=== PATIENT | female | born 1945 | race Caucasian/White ===

== ENCOUNTER 2016-10-26 09:03 | Inpatient (IN) ==
--- NOTE | 2016-10-26 09:31 | Anesthesia Evaluation PreOp ---
Date of Encounter: 10/26/16 Time of Encounter: 09:29 - Past History Planned Operation: Robotic Laparoscopic Sigmoid Colectomy Cardiac History: HTN, Hyperlipidemia, Arrhythmia Pulmonary History: Denies Any Significant HX INDUSTRIAL SPECIALIST History: Denies Any Significant HX Other Medical History: Renal (CKD stage 3), GERD, Other (fibromyalgia) Anesthesia History: No Prior Anesthetic Complications, Past Anesthesia Alcohol Use: none Drug use: none Medications and Allergies ClonazePAM [Klonopin] 0.5 mg PO HS 06/17/15 [History] Esomeprazole Magnesium [Nexium] 40 mg PO QAM 06/17/15 [History] Gabapentin [Neurontin] 300 mg PO TID PRN 06/17/15 [History] Loratadine [Claritin] 10 mg PO DAILY PRN 06/17/15 [History] Metoprolol [Lopressor] 12.5 mg PO BID 06/17/15 [History] Ropinirole HCl [Requip] 2 mg PO HS 06/17/15 [History] Simvastatin [Zocor] 40 mg PO HS 06/17/15 [History] Fenofibrate [Tricor] 162 mg PO DAILY #30 tablet 06/19/15 [Rx] Ferrous Sulfate 325 mg PO DAILY #30 tablet 06/19/15 [Rx] [place]-3/Dha/Epa/Fish Oil [Fish Oil 1,200 mg Softgel] 2 each PO DAILY #60 capsule. 06/19/15 [Rx] TraMADol [Ultram] 50 mg PO QID PRN #12 tablet 12/31/15 [Rx] Cholecalciferol (D-3) [Vitamin D] 2,000 unit PO DAILY 07/05/16 [History] Ferrous Gluconate 324 mg PO DAILY 07/05/16 [History] Furosemide [Lasix] 60 mg PO DAILY 07/05/16 [History] Hydrocodone/Acetaminophen [[place] 5-325 Tablet] 1 tab PO Q4H PRN 07/05/16 [ History] Polyethylene Glycol 3350 [MiraLAX] 17 gm PO DAILY 07/05/16 [History] Allergies cephalexin [From Keflex] Allergy (Verified 06/17/15 19:36) Hives sucralfate [From Carafate] Allergy (Verified 06/17/15 19:36) Hives - Meds/Allergy Pre-op Review Medications Reviewed: Yes Allergies Reviewed: Yes Beta Blockers on Current Med List: Yes If Beta Blockers taken, Date/Time (Last Dose taken): 10/26/2016 at 0600 Anesthesia Results - Labs Laboratory Tests 06/18/15 10/08/16 10/08/16 01:14 09:25 09:25 WBC 7.0 Hgb 13.7 Hct 41.3 Plt Count 225 PT 11.1 INR 1.04 PTT 27.7 Sodium 139 Potassium 3.9 BUN 22 H Creatinine 1.03 - Imaging EKG: report reviewed (10/17/2016 SR) Additional studies: 06/18/2015 Echo LVEF 60-65% mild LV diastolic dysfunction mild MR and TR normal LV structure and function 01/26/2014 Stress Impression: Pharmacologic stress ECG is negative for ischemia at level of heart rate achieved. No arrhythmias were noted during stress. Patient had no chest pain during stress. Normal hemodynamic response to pharmacologic stress. Gated EF > 70%. Normal wall motion. The left ventricle does not appear dilated. No evidence of transient ischemic dilatation. Perfusion imaging was negative for ischemia or infarct. 12/24/2013 Echo Impressions: LVEF 65%. Normal left ventricular size and systolic function. There is evidence of mild (Grade I) diastolic dysfunction of the left ventricle. Normal right ventricular size and function. No significant valvular dysfunction. RVSP of 26 mmHg No pulmonary hypertension. Clinical correlation is suggested Anesthesia Exam O2 Sat Height 1.65 m Height 1.65 m Weight 68.946 kg Weight 68.946 kg O2 Sat by Pulse Oximetry 97 Vital Signs Temp Pulse Resp BP Pulse Ox 98.2 F 62 18 135/73 97 10/26/16 09:25 10/26/16 09:25 10/26/16 09:25 10/26/16 09:25 10/26/16 09:25 Height: 5'5'' Weight: 152 lbs NPO (# of Hours): 8 Pain Scale: 0 Pain Scale Used: Numeric (1 - 10) - HEENT Pupil (Motor): EOMI Mallampati: II Teeth: Edentulous Denture Type: Upper: Complete, Lower: Complete Oral Opening: Greater than 3 - INDUSTRIAL SPECIALIST LOC: Oriented INDUSTRIAL SPECIALIST Motor: Normal LUE, Normal RLE, Normal LLE, Normal Face, Deficit RUE INDUSTRIAL SPECIALIST Sensory: Normal: LUE, RLE, LLE, Face, Deficit: RUE - Cardiac Rhythm: Regular Murmur: None - Pulmonary Breath Sounds: bilateral Clear Respiratory Effort: Symmetrical Anesthesia Assess/Plan ASA Score: 2 Modified [place] Scale for Level of Consciousness: Cooperative, oriented, and tranquil Anesthetic Plan: General Monitoring Plan: Standard Monitors Recovery Plan: PACU
[2016-10-26] MEDS ORDERED: Lidocaine -MPF 1% 2 ML VIAL ID ONE (09:43)
[2016-10-26] MEDS ORDERED: Ringers Solution, Lactated 1,000 ML IVC SCH (09:45)
[2016-10-26] MEDS ORDERED: MetroNIDAZOLE 500 MG/100 ML 500 MG/100 ML BAG IVPB ONE (09:45)
--- NOTE | 2016-10-26 10:34 | History & Physical Report ---
Date of Encounter: 10/26/16 Time of Encounter: 10:34 24 Hour HP Update - Instructions Instructions: If the History and Physical is less than 30 days old and was completed prior to A.M. admission and or procedure and has NOT been updated on calendar day of procedure please complete this update prior to performing procedure. - Update Patient reports changes in Medical Condition: No Changes in examination, assessment, or condition: No Changes in Medication: No Preop tests/diagnostics Reviewed: Yes Surgery Remains Indicated: Yes Consent for Planned Operative Procedure(s) Verified: Yes - Pre-Operative Checklist Preoperative Checklist Indicated: Yes Prophylactic Antibiotic Ordered: Yes Home Medications Include Beta Liliana: Yes Beta Liliana Taken Today (Day of Surgery): Yes
[2016-10-26] MEDS ORDERED: *HR* FentaNYL (PF) 100 MCG/2 ML VIAL ONE ×2 (10:37→13:11)
[2016-10-26] MEDS ORDERED: Ondansetron 4 MG/2 ML VIAL ONE (10:37)
[2016-10-26] MEDS ORDERED: *HR* Rocuronium Bromide 50 MG/5 ML VIAL ONE (10:37)
[2016-10-26] MEDS ORDERED: *HR* Midazolam HCl 2 MG/2 ML VIAL ONE ×2 (10:37)
[2016-10-26] MEDS ORDERED: Lidocaine -MPF 2% 2 ML VIAL ONE (10:37)
[2016-10-26] MEDS ORDERED: *HR* Propofol 200 MG/20 ML VIAL IVP ONE (10:37)
[2016-10-26] MEDS ORDERED: Albuterol 2.5 MG/3 ML NEBULIZER IH PRN (11:13)
[2016-10-26] MEDS ORDERED: Ondansetron 4 MG/2 ML VIAL IVP PRN (11:13)
[2016-10-26] MEDS ORDERED: *HR* Labetalol 100 MG/20 ML MDV IVP PRN (11:13)
[2016-10-26] MEDS ORDERED: *HR* HYDROmorphone 2 MG/ML SYRINGE ONE (12:19)
[2016-10-26] MEDS ORDERED: Neostigmine Methylsulfate 3 MG/3 ML SYRINGE ONE (12:53)
--- NOTE | 2016-10-26 13:14 | Operative Note ---
Date of procedure: 10/26/16 Pre-op diagnosis: Colonic inertia Post-op diagnosis: same Procedure: Robotic sigmoid resection with 33 mm EEA stapling Anesthesia: RENETTA Surgeon: Nba Alberts Estimated blood loss (cc): 5 Specimen: Sigmoid colon Condition: stable Disposition: floor Procedure in Detail: After informed consent, patient taken operating room placed supine position. After adequate sedation anesthesia patient was placed in a lithotomy position. After proper timeout a 12 mm cannula site was placed right superior to the umbilicus. Pneumoperitoneum was greater. A 13 mm cannula was placed in right lower quadrant. 5 mm camera was placed in the right upper quadrant. An 8 mm cannula was placed in subxiphoid region followed by another 8 mm in the left lower quadrant. Patient was placed in a headdown position. The robot was docked over the patient's left hip. Small bowel swept out of the pelvis. Rectosigmoid colon was then grasped and retracted cephalad. The peritoneum was then scored level of the sacral promontory. The left ureter was identified and kept on harm's way. The inferior mesenteric artery was then taken with a vessel sealer. The lateral rectosigmoid stalks were taken down the vessel sealer. The dissection was carried out down to approximate 4 cm above the pelvic floor. Rectosigmoid colon was dissected free from the retro-pubic tubercle region. Once it was freed a 45 mm robotic Endo staplers fired across the rectum. Once it was retracted and area was demarcated on the sigmoid colon for transection. Indocyanine green was infused and we had excellent perfusion. A counterincision was made in the suprapubic region. Dissection carried down the anterior rectus sheath. The rectus muscles were then divided in the midline with Stacey clamp. Once they were split the rectosigmoid colon was delivered. Twan bowel clamps are used to place across the colon proximal and distal and transected. Allis clamps are placed on the bowel and then a pursestring suture device placed on the colon. 3-0 Prolene suture was passed. A pursestring sutures and created and a 33 mm EEA anvil was placed. Suture was tied and secured. Colon was then placed back in the pelvis. The stapler was passed through the anal canal and to the rectal stump and then the spear was placed through the staple line. The anvil was then connected secured and fired. There were 2 excellent donuts. A leak test revealed no leak. At that point the procedure was terminated. All incisions are closed with 0 Vicryl suture and 4-0 Vicryl suture. Marcaine was inserted in the Pfannenstiel incision. She tolerated the procedure well.
[2016-10-26] MEDS: *HR* HYDROmorphone (PF) 1 MG/ML SYRINGE IVP PRN ×2 (13:18→13:23)
[2016-10-26] MEDS ORDERED: *HR* HYDROmorphone 20 MG/20 ML PCA IV PRN (13:18)
--- NOTE | 2016-10-26 14:03 | Anesthesia Evaluation Post Op ---
Date of Encounter: 10/26/16 Time of Encounter: 14:01 - Vital Signs Vital Signs: O2 Sat Height 1.65 m Height 1.65 m Weight 68.946 kg Weight 68.946 kg O2 Sat by Pulse Oximetry 95 O2 Sat by Pulse Oximetry 99 O2 Sat by Pulse Oximetry 99 O2 Sat by Pulse Oximetry 98 O2 Sat by Pulse Oximetry 94 O2 Sat by Pulse Oximetry 97 Vital Signs Temp Pulse Resp BP Pulse Ox 98.2 F 62 18 135/73 97 10/26/16 09:25 10/26/16 09:25 10/26/16 09:25 10/26/16 09:25 10/26/16 09:25 - Lungs Lungs: Clear Ascult./Percussion - Airway Airway: Non-obstructed - Cardiovascular Regular Rate - Mental Status Mental Status: Alert & Oriented, Answers Appropriately - Pain Pain Scale: 6 (treatment with dilaudid) - Nausea Vomiting Nausea Vomiting: Not Present - Hydration Hydration: Ice chips, Has not voided - Discharge PostOp Status: Transfer Patient to floor
[2016-10-26] MEDS ORDERED: Naloxone 0.4 MG/ML INJ IVP PRN (14:30)
[2016-10-26] MEDS ORDERED: *HR* HYDROmorphone 20 MG/20 ML PCA IVC PRN (15:20)
[2016-10-26] MEDS: D5% in 0.45% NACL 1,000 ML IVC SCH (15:42)
[2016-10-26] MEDS ORDERED: *HR* Heparin 5,000 UNIT/ML VIAL SQ SCH (18:00)
[2016-10-26] MEDS: Gabapentin 300 MG CAPSULE PO SCH ×2 (18:03→21:24)
[2016-10-26] MEDS: rOPINIRole 1 MG TABLET PO SCH (18:03)
[2016-10-26] MEDS: *HR* Heparin 5,000 UNIT/ML VIAL SQ SCH (18:07)
[2016-10-26] MEDS ORDERED: *HR* Promethazine 25 MG/ML VIAL IVP PRN (18:15)
[2016-10-27] MEDS: D5% in 0.45% NACL 1,000 ML IVC SCH ×2 (02:43→13:06)
[2016-10-27 02:52] LABS: Basophils % 0.1 %; Hematocrit 29.4 % (35.3-44.9); Hemoglobin 9.6 g/dL (11.5-15.4); Immature Granulocytes % 0.2 % (0-4); Lymphocytes # 1.6 K/mcL (0.6-4.6); Lymphocytes % 17.6 %; Mean Corpuscular HGB Conc 32.7 g/dL (31.6-35.5); Mean Corpuscular Hemoglobin 30.2 pg (28.0-33.3); Mean Corpuscular Volume 92.5 fL (83.0-100.0); Mean Platelet Volume 10.7 fL (9.4-12.4); Monocytes # 0.8 K/mcL (0.0-1.3); Neutrophils # 6.8 K/mcL (1.6-8.9); Platelet Count 156 K/mcL (140-400); Red Blood Count 3.18 M/mcL (3.82-4.97); Red Cell Distribution Width 16.3 % (11.5-14.5); Segmented Neutrophils % 73.1 %
[2016-10-27 04:17] LABS: BUN/Creatinine Ratio 19 (6-26); Blood Urea Nitrogen 17 mg/dL (7-20); Carbon Dioxide 23 mEq/L (19-29); Chloride 108 mEq/L (98-109); Glucose 116 mg/dL (70-99); Osmolality,Calculated 291 (280-300); Potassium 3.5 mEq/L (3.5-4.5); Sodium 139 mEq/L (136-145); eGFR For African Americans > 60 (> 60); eGFR For Non-African Americans > 60 (> 60)
[2016-10-27 04:18] LABS: Calcium 9.5 mg/dL (8.6-10.8)
[2016-10-27] MEDS: *HR* Heparin 5,000 UNIT/ML VIAL SQ SCH ×2 (06:06→18:13)
[2016-10-27] MEDS: Gabapentin 300 MG CAPSULE PO SCH ×4 (09:07→20:40)
[2016-10-27] MEDS: Furosemide 40 MG TABLET PO SCH (09:08)
[2016-10-27] MEDS: Cholecalciferol (D-3) 1,000 UNIT TABLET PO SCH (09:08)
[2016-10-27] MEDS: FENOFIBRATE MICRONIZED 67 MG PO SCH (09:09)
--- NOTE | 2016-10-27 10:59 | General Surgery Progress Note ---
Date of Encounter: 10/27/16 Time of Encounter: 10:57 - Assessment and Plan (1) Colonic inertia Current Visit: Yes Status: Acute Plan for ambulation today. Continue liguids. will add toradol. Subjective Patient reports: no flatus, nausea Objective Vital Signs - Last 8 Hours Temp Pulse Resp BP Pulse Ox 10/27/16 07:00 98.1 F 66 16 107/65 93 10/27/16 04:23 97.5 F L 68 18 107/64 93 Intake and Output 10/26/16 10/27/16 10/27/16 23:59 07:59 15:59 Intake Total 0 / 0 1240 / 1240 711 / 711 Output Total 200 / 200 400 / 400 Balance 0 / 0 1040 / 1040 311 / 311 Intake: IV Fluids 1000 / 1000 591 / 591 D5% And 0.45% Nacl 1000 1000 / 1000 591 / 591 Ml Bag 1,000 ML @ 90 mls/ hr IVC .Q11H7M MARLO Rx#: [id number] Oral 0 / 0 240 / 240 120 / 120 Output: Urine 200 / 200 400 / 400 Other: Meal Dinner Breakfast Percent of Meal Consumed 0% Weight 70.307 kg Blood Glucose* 129 Patient Weight 10/27/16 23:59 Weight 70.307 kg - General physical appearance well nourished, no distress - Eyes normal ocular movement - Abdomen Abdomen: Present: bowel sounds present, soft, tender - Incision Incision: Present: clean and dry - Labs 10/27/16 02:28 10/27/16 03:29 Diabetes panel 10/27/16 10/27/16 Range/Units 02:28 03:29 Sodium TNP 139 Potassium TNP 3.5 Chloride TNP 108 Carbon Dioxide TNP 23 BUN TNP 17 Creatinine TNP 0.88 Glucose TNP 116 H Calcium TNP 9.5 Calcium panel 10/27/16 10/27/16 Range/Units 02:28 03:29 Calcium TNP 9.5 Pituitary panel 10/27/16 10/27/16 Range/Units 02:28 03:29 Sodium TNP 139 Potassium TNP 3.5 Chloride TNP 108 Carbon Dioxide TNP 23 BUN TNP 17 Creatinine TNP 0.88 Glucose TNP 116 H Calcium TNP 9.5 Adrenal panel 04/15/17 04/15/17 Range/Units 02:28 03:29 Sodium TNP 139 Potassium TNP 3.5 Chloride TNP 108 Carbon Dioxide TNP 23 BUN TNP 17 Creatinine TNP 0.88 Glucose TNP 116 H Calcium TNP 9.5 - VTE Documentation of Mechanical Device: Intermittent pneumatic compression device Consult Discharge Plan - Plan Referrals: Bobby Brothers MD [Primary Care Provider] -
[2016-10-27] MEDS: Ketorolac 15 MG/ML VIAL IVP SCH ×2 (11:36→18:13)
[2016-10-27] MEDS: rOPINIRole 1 MG TABLET PO SCH (16:36)
[2016-10-28] MEDS: D5% in 0.45% NACL 1,000 ML IVC SCH ×2 (00:32→11:56)
[2016-10-28] MEDS: Ketorolac 15 MG/ML VIAL IVP SCH ×5 (00:33→23:26)
[2016-10-28] MEDS: *HR* Heparin 5,000 UNIT/ML VIAL SQ SCH ×2 (06:39→17:45)
[2016-10-28] MEDS: Furosemide 40 MG TABLET PO SCH (08:48)
[2016-10-28] MEDS: Gabapentin 300 MG CAPSULE PO SCH ×4 (08:48→21:21)
[2016-10-28] MEDS: Cholecalciferol (D-3) 1,000 UNIT TABLET PO SCH (08:48)
[2016-10-28] MEDS: FENOFIBRATE MICRONIZED 67 MG PO SCH (08:49)
--- NOTE | 2016-10-28 13:00 | General Surgery Progress Note ---
Date of Encounter: 10/28/16 Time of Encounter: 12:58 - Assessment and Plan (1) Colonic inertia Current Visit: Yes Status: Acute Plan for ambulation today. Continue liguids. will add toradol. I have encouraged her to continue to get out of bed and ambulate. Subjective Patient reports: other (The patient does not give any sense of whether she is progressing or how she feels. She has been tearful both days and have seen her. She cannot really give any idea why she feels this way.) Objective Vital Signs - Last 8 Hours Temp Pulse Resp BP Pulse Ox 10/28/16 11:45 98.1 F 62 18 146/78 100 10/28/16 07:00 99.0 F 74 16 117/66 94 Intake and Output 10/27/16 10/28/16 10/28/16 23:59 07:59 15:59 Intake Total 1340 / 1340 1240 / 1240 Output Total 500 / 500 700 / 700 Balance 840 / 840 540 / 540 Intake: IV Fluids 1000 / 1000 1000 / 1000 D5% And 0.45% Nacl 1000 1000 / 1000 1000 / 1000 Ml Bag 1,000 ML @ 90 mls/ hr IVC .Q11H7M MARLO Rx#: [id number] Oral 340 / 340 240 / 240 Output: Urine 500 / 500 700 / 700 Other: Meal Breakfast Weight 71.271 kg Patient Weight 10/28/16 23:59 Weight 71.271 kg - General physical appearance well nourished - Eyes PERRL - Neck Neck exam: trachea midline - Respiratory normal expansion - Cardiovascular Cardiovascular exam: Present: NR - Abdomen Abdomen: Present: bowel sounds present, soft, distended - Neurologic CN 2-12 grossly intact, normal sensation - Labs 10/27/16 02:28 10/27/16 03:29 - VTE Documentation of Mechanical Device: Intermittent pneumatic compression device Consult Discharge Plan - Plan Referrals: Bobby Brothers MD [Primary Care Provider] -
[2016-10-28] MEDS: *HR* OxyCODONE/APAP 5/325 TABLET PO PRN ×2 (13:36→19:48)
[2016-10-28] MEDS ORDERED: traMADol 50 MG TABLET PO PRN (14:42)
[2016-10-28] MEDS: rOPINIRole 1 MG TABLET PO SCH (17:44)
[2016-10-29] MEDS: *HR* Heparin 5,000 UNIT/ML VIAL SQ SCH (06:41)
[2016-10-29] MEDS: Ketorolac 15 MG/ML VIAL IVP SCH ×2 (06:41→12:01)
[2016-10-29] MEDS: Cholecalciferol (D-3) 1,000 UNIT TABLET PO SCH (10:03)
[2016-10-29] MEDS: Furosemide 40 MG TABLET PO SCH (10:03)
[2016-10-29] MEDS: Gabapentin 300 MG CAPSULE PO SCH (10:03)
[2016-10-29] MEDS: FENOFIBRATE MICRONIZED 67 MG PO SCH (10:19)
[2016-10-29 10:56] VITALS: BP 153/71
--- NOTE | 2016-10-29 14:05 | Discharge Summary ---
Date of Encounter: 10/29/16 Time of Encounter: 14:00 - Discharge Diagnosis (1) Colonic inertia Priority: Primary Status: Resolved - Discharge Medications Prescriptions: OxyCODONE/APAP 5/325 [Percocet 5/325 MG] 1 each PO Q6HR PRN #30 tablet PRN Reason: Pain Docusate [Colace] 100 mg PO BID #30 capsule Home Medications: Gabapentin [Neurontin] 300 mg PO QID 06/17/15 [History] Metoprolol [Lopressor] 12.5 mg PO BID 06/17/15 [History] Cholecalciferol (D-3) [Vitamin D] 2,000 unit PO DAILY 07/05/16 [History] Fenofibrate,Micronized [Lofibra] 67 mg PO DAILY 10/26/16 [History] Furosemide [Lasix] 40 mg PO DAILY 10/26/16 [History] Omeprazole [PriLOSEC] 40 mg PO DAILY 10/26/16 [History] Ropinirole HCl [Requip] 4 mg PO HS 10/26/16 [History] Docusate [Colace] 100 mg PO BID #30 capsule 10/29/16 [Rx] OxyCODONE/APAP 5/325 [Percocet 5/325 MG] 1 each PO Q6HR PRN #30 tablet 10/29/16 [Rx] Allergies/Adverse Reactions: Allergies cephalexin [From Keflex] Adverse Reaction (Verified 10/26/16 09:51) Gastrointestinal Upset pantoprazole [From Protonix] Adverse Reaction (Verified 10/26/16 09:51) Gastrointestinal Upset sucralfate [From Carafate] Adverse Reaction (Verified 10/26/16 09:51) Gastrointestinal Upset General Surgery Exam Initial Vital Signs Temp Pulse Resp BP Pulse Ox 98.2 F 62 18 135/73 97 10/26/16 09:25 10/26/16 09:25 10/26/16 09:25 10/26/16 09:25 10/26/16 09:25 - General physical appearance well developed, well nourished, no distress - Eyes normal ocular movement - ENT normal mucosa, atraumatic, normocephalic - Neck trachea midline - Respiratory normal respiratory effort, clear to auscultation - Cardiovascular Cardiovascular exam: Present: RRR - Abdomen Abdomen general surgery: Present: bowel sounds present, soft, tender (expected post-operative tenderness) - Incision Incision: Present: clean and dry, intact - Integumentary Integumentary general surgery: Present: warm and dry - Neurologic Present: CN 2-12 grossly intact - Psychiatric Psychiatric general surgery: Present: appropriate, oriented to person, oriented to place, oriented to time, speech is normal, memory intact Date of admission: 10/26/16 14:28 Primary care physician: Boaz Ogden Consults: 10/26/16 18:40 Consult to Pastoral Services [CONS] Routine Comment: Discharging clinician: Nba Alberts (Cecily Berry) Anticipated date of discharge: 10/29/16 - Patient Status Disposition: Home, Self-Care Condition: Good Functional capacity at discharge: independent ambulation Overall status at discharge: patient is progressing back to baseline - Discharge Instructions Follow Up With: Bobby Brothers MD [Primary Care Provider] - Magdalena Berry CNP [Advanced Practice Nurse] - 11/08/16 10:00 am (surgery follow-up) Additional Instructions: Surgical instructions: #1 May shower, no tub bath X 2 weeks #2 Wash incisions with soap and water and pat dry daily #3 No lifting/pushing/pulling greater than 15 lb. for a total of 4 weeks from the date of surgery #4 No driving until off narcotics for 24 hours and able to safely react in the car #5 May climb stairs - Diet and Activity Activity: other (See additional instructions above) Diet: advance to your usual diet - Hospital Course Hospital course: Ms. Warner is a 71 year old female with a history of colonic inertia. She is POD # 3 from a robotic sigmoid colon resection. She is tolerating full liquids without nausea/vomiting. Her vital signs are stable and she is afebrile. Her pain is controlled. She is voiding and ambulating without difficulty. She has had 2 bowel movements this morning. We will begin discharge planning to home and plan for outpatient follow-up in the next 10-14 days. - Time Spent with Patient Total time spent providing and/or coordinating discharge services: Less than 30 minutes - Attending Attestation I examined this patient and my medical decision-making was reviewed with the [employer]LOOR INSTALLER/PA/Advanced Practice Nurse/Resident Physician. I agree with the documented findings, disposition and treatment plan as described except to the extent set forth below.
== END 2016-10-29 14:57 | disposition home or self-care (01) | DRG 331 ==
LOC: SAMDAY 09:03 → 3ANU 14:28
PROVIDERS: ADMIT Surgery; ATTEND Surgery

== ENCOUNTER 2020-09-03 15:43 | Observation (INO) ==
[2020-09-03] MEDS ORDERED: Isovue-370 500 ML BOTTLE IVP ONE ×2 (16:16→17:15)
[2020-09-03 16:37] LABS: Basophils # 0.1 K/mcL (0.0-0.2); Basophils % 0.9 %; Eosinophils # 0.1 K/mcL (0.0-0.6); Eosinophils % 1.1 %; Hematocrit 45.4 % (35.3-44.9); Hemoglobin 15.4 g/dL (11.5-15.4); Immature Granulocytes % 0.2 % (0-4); Lymphocytes # 3.3 K/mcL (0.6-4.6); Lymphocytes % 40.7 %; Mean Corpuscular HGB Conc 33.9 g/dL (31.6-35.5); Mean Corpuscular Hemoglobin 30.4 pg (28.0-33.3); Mean Corpuscular Volume 89.7 fL (83.0-100.0); Mean Platelet Volume 10.4 fL (9.4-12.4); Monocytes # 0.7 K/mcL (0.0-1.3); Monocytes % 8.6 %; Platelet Count 192 K/mcL (140-400); Red Blood Count 5.06 M/mcL (3.82-4.97); Red Cell Distribution Width 13.1 % (11.5-14.5); Segmented Neutrophils % 48.5 %; White Blood Count 8.1 K/mcL (4.3-11.1)
[2020-09-03 17:00] LABS: Alanine Aminotransferase 56 Units/L (7-52); Albumin 5.1 g/dL (3.5-5.7); Albumin/Globulin Ratio 1.3 (1.1-2.2); Alkaline Phosphatase 79 Units/L (34-104); Aspartate Amino Transferase 45 Units/L (13-39); BUN/Creatinine Ratio 19 (6-26); Bilirubin,Direct 0.1 mg/dL (0.0-0.2); Bilirubin,Total 1.1 mg/dL (0.3-1.0); Blood Urea Nitrogen 21 mg/dL (8-23); Calcium 11.2 mg/dL (8.6-10.3); Carbon Dioxide 25 mEq/L (23-29); Chloride 93 mEq/L (98-107); Globulin 3.8 g/dL (2.4-3.5); Glucose 104 mg/dL (70-105); Osmolality,Calculated 285 (280-300); Potassium 3.1 mEq/L (3.5-5.1); Sodium 136 mEq/L (136-145); Total Protein 8.9 g/dL (6.4-8.9); Troponin I < 0.03 ng/mL (< 0.04); eGFR For African Americans 58 (> 60); eGFR For Non-African Americans 48 (> 60)
[2020-09-03] MEDS ORDERED: 0.9 % Sodium Chloride 1,000 ML IVC ONE ×2 (17:01→18:28)
[2020-09-03] MEDS ORDERED: Aspirin 81 MG TAB.CHEW PO STA (18:28)
[2020-09-03] MEDS: rOPINIRole 1 MG TABLET PO SCH (21:56)
[2020-09-03] MEDS ORDERED: Perflutren Lipid Microsphere 1.3 ML in 0.9 % Sodium Chloride 8.7 ML IVP PRN (23:14)
[2020-09-04] MEDS ORDERED: Naloxone 0.4 MG/ML INJ IVP PRN (00:28)
[2020-09-04 02:05] LABS: Basophils % 0.6 %; Eosinophils # 0.1 K/mcL (0.0-0.6); Eosinophils % 1.3 %; Hematocrit 39.7 % (35.3-44.9); Immature Granulocytes % 0.3 % (0-4); Lymphocytes # 3.5 K/mcL (0.6-4.6); Lymphocytes % 49.2 %; Mean Corpuscular HGB Conc 34.3 g/dL (31.6-35.5); Mean Corpuscular Hemoglobin 31.5 pg (28.0-33.3); Mean Corpuscular Volume 91.9 fL (83.0-100.0); Mean Platelet Volume 10.9 fL (9.4-12.4); Monocytes # 0.6 K/mcL (0.0-1.3); Monocytes % 8.5 %; Neutrophils # 2.9 K/mcL (1.6-8.9); Platelet Count 179 K/mcL (140-400); Red Blood Count 4.32 M/mcL (3.82-4.97); Red Cell Distribution Width 13.2 % (11.5-14.5); Segmented Neutrophils % 40.1 %; White Blood Count 7.2 K/mcL (4.3-11.1)
[2020-09-04 02:08] LABS: Hemoglobin 13.6 g/dL (11.5-15.4)
[2020-09-04 02:23] LABS: BUN/Creatinine Ratio 21 (6-26); Blood Urea Nitrogen 20 mg/dL (8-23); Calcium 9.4 mg/dL (8.6-10.3); Carbon Dioxide 24 mEq/L (23-29); Chloride 102 mEq/L (98-107); Glucose 126 mg/dL (70-105); Osmolality,Calculated 288 (280-300); Potassium 3.1 mEq/L (3.5-5.1); Sodium 137 mEq/L (136-145); eGFR For African Americans > 60 (> 60); eGFR For Non-African Americans 56 (> 60)
[2020-09-04] MEDS: *HR* Heparin 5,000 UNIT/ML VIAL SQ SCH ×2 (05:45→17:36)
[2020-09-04] MEDS ORDERED: *HR* Enoxaparin 40 MG/0.4 ML SYRINGE SQ SCH (06:00)
[2020-09-04] MEDS: rOPINIRole 1 MG TABLET PO SCH ×3 (09:38→21:32)
[2020-09-04] MEDS: Gabapentin 300 MG CAPSULE PO SCH ×2 (09:38→19:39)
[2020-09-04] MEDS: Hydrocortisone Rectal 2.5% CRM 28 GM TUBE RC SCH (09:39)
[2020-09-04] MEDS ORDERED: Gabapentin 300 MG CAPSULE PO PRN (13:55)
[2020-09-04] MEDS ORDERED: Furosemide 20 MG TABLET PO SCH (15:00)
[2020-09-04] MEDS ORDERED: FUROSEMIDE 80 MG PO SCH (21:00)
[2020-09-04] MEDS: Nystatin POWDER 30 GM BOTTLE TP SCH (21:32)
[2020-09-05] MEDS: *HR* Heparin 5,000 UNIT/ML VIAL SQ SCH (05:24)
[2020-09-05 05:43] LABS: Hematocrit 45.5 % (35.3-44.9); Mean Corpuscular Hemoglobin 30.5 pg (28.0-33.3); Mean Corpuscular Volume 92.5 fL (83.0-100.0); Mean Platelet Volume 10.9 fL (9.4-12.4); Platelet Count 184 K/mcL (140-400); Red Blood Count 4.92 M/mcL (3.82-4.97); Red Cell Distribution Width 13.2 % (11.5-14.5); White Blood Count 7.5 K/mcL (4.3-11.1)
[2020-09-05] MEDS ORDERED: Levothyroxine 25 MCG TABLET PO SCH (06:00)
[2020-09-05] MEDS ORDERED: Regadenoson 0.4 MG/5 ML SYRINGE IVP ONE (06:34)
[2020-09-05 06:35] LABS: Alanine Aminotransferase 50 Units/L (7-52); Albumin 4.7 g/dL (3.5-5.7); Albumin/Globulin Ratio 1.3 (1.1-2.2); Alkaline Phosphatase 72 Units/L (34-104); Aspartate Amino Transferase 41 Units/L (13-39); BUN/Creatinine Ratio 23 (6-26); Bilirubin,Total 1.1 mg/dL (0.3-1.0); Blood Urea Nitrogen 20 mg/dL (8-23); Calcium 10.5 mg/dL (8.6-10.3); Carbon Dioxide 25 mEq/L (23-29); Chloride 99 mEq/L (98-107); Globulin 3.5 g/dL (2.4-3.5); Glucose 121 mg/dL (70-105); Osmolality,Calculated 284 (280-300); Potassium 3.7 mEq/L (3.5-5.1); Sodium 135 mEq/L (136-145); Total Protein 8.2 g/dL (6.4-8.9); eGFR For African Americans > 60 (> 60); eGFR For Non-African Americans > 60 (> 60)
[2020-09-05] MEDS ORDERED: Cyanocobalamin (B-12) 1,000 MCG TABLET PO SCH (09:00)
[2020-09-05] MEDS: rOPINIRole 1 MG TABLET PO SCH (10:48)
[2020-09-05] MEDS: Nystatin POWDER 30 GM BOTTLE TP SCH (10:48)
[2020-09-05] MEDS: Hydrocortisone Rectal 2.5% CRM 28 GM TUBE RC SCH (10:50)
[2020-09-05 11:26] VITALS: BP 106/71
== END 2020-09-05 16:42 | disposition home or self-care (01) ==
LOC: 3BNU 15:43 → EMEROOARM 15:43 → SUATTDRO 19:34 → 3BNU 20:20
PROVIDERS: ADMIT Internal Medicine; ATTEND Registered Nurse

== ENCOUNTER 2020-10-27 13:20 | Observation (INO) ==
[2020-10-27] MEDS ORDERED: Isovue-370 500 ML BOTTLE IVP ONE (13:32)
[2020-10-27 14:07] LABS: Hematocrit 41.1 % (35.3-44.9); Hemoglobin 14.5 g/dL (11.5-15.4); Mean Corpuscular HGB Conc 35.3 g/dL (31.6-35.5); Mean Corpuscular Hemoglobin 30.7 pg (28.0-33.3); Mean Corpuscular Volume 86.9 fL (83.0-100.0); Mean Platelet Volume 10.2 fL (9.4-12.4); Platelet Count 217 K/mcL (140-400); Red Blood Count 4.73 M/mcL (3.82-4.97); Red Cell Distribution Width 13.2 % (11.5-14.5); White Blood Count 8.5 K/mcL (4.3-11.1)
[2020-10-27] MEDS ORDERED: Ondansetron 4 MG/2 ML VIAL IVP ONE (14:43)
[2020-10-27] MEDS ORDERED: 0.9 % Sodium Chloride 1,000 ML IVC ONE (14:43)
[2020-10-27] MEDS ORDERED: *HR* FentaNYL (PF) 100 MCG/2 ML VIAL IVP STA (14:44)
[2020-10-27 14:46] LABS: Albumin 4.7 g/dL (3.5-5.7); Albumin/Globulin Ratio 1.4 (1.1-2.2); Bilirubin,Direct 0.1 mg/dL (0.0-0.2); Bilirubin,Total 1.1 mg/dL (0.3-1.0); Calcium 10.2 mg/dL (8.6-10.3); Globulin 3.3 g/dL (2.4-3.5); Potassium 2.4 mEq/L (3.5-5.1)
[2020-10-27] MEDS ORDERED: Potassium Chloride 40 MEQ, Lidocaine 1% 2 ML in 0.9 % Sodium Chloride 500 ML IVPB ONE (16:20)
[2020-10-27 16:57] LABS: Bilirubin,Urine Negative (Negative); Blood,Urine Negative (Negative); Clarity,Urine Clear (Clear); Color,Urine Light-Yellow (Yellow); Glucose,Urine (UA) Normal (Normal); Ketones,Urine Negative (Negative); Leukocyte Esterase,Urine Negative (Negative); Nitrite,Urine Negative (Negative); Protein,Urine Negative (Neg-Trace); Specific Gravity,Urine > 1.030 (1.010-1.025); Urobilinogen,Urine Normal (Normal)
[2020-10-27] MEDS ORDERED: Melatonin 3 MG TABLET PO PRN (17:42)
[2020-10-27] MEDS ORDERED: Ondansetron 4 MG/2 ML VIAL IVP PRN (17:42)
[2020-10-27] MEDS ORDERED: Naloxone 0.4 MG/ML INJ IVP PRN (17:42)
[2020-10-27] MEDS: *HR* Heparin 5,000 UNIT/ML VIAL SQ SCH (19:35)
[2020-10-27] MEDS ORDERED: Potassium Chloride Elixir 20 MEQ/15 ML UDC PO ONE (20:00)
[2020-10-28] MEDS: *HR* Heparin 5,000 UNIT/ML VIAL SQ SCH (05:42)
[2020-10-28 06:16] LABS: Basophils % 0.6 %; Eosinophils # 0.1 K/mcL (0.0-0.6); Eosinophils % 2.1 %; Hematocrit 40.8 % (35.3-44.9); Hemoglobin 13.5 g/dL (11.5-15.4); Immature Granulocytes % 0.2 % (0-4); Lymphocytes # 3.9 K/mcL (0.6-4.6); Lymphocytes % 58.5 %; Mean Corpuscular HGB Conc 33.1 g/dL (31.6-35.5); Mean Corpuscular Hemoglobin 30.4 pg (28.0-33.3); Mean Corpuscular Volume 91.9 fL (83.0-100.0); Mean Platelet Volume 10.5 fL (9.4-12.4); Monocytes # 0.5 K/mcL (0.0-1.3); Monocytes % 7.1 %; Neutrophils # 2.1 K/mcL (1.6-8.9); Platelet Count 198 K/mcL (140-400); Red Blood Count 4.44 M/mcL (3.82-4.97); Red Cell Distribution Width 13.7 % (11.5-14.5); Segmented Neutrophils % 31.5 %; White Blood Count 6.6 K/mcL (4.3-11.1)
[2020-10-28] MEDS ORDERED: Potassium Chloride Elixir 20 MEQ/15 ML UDC PO ONE (07:36)
[2020-10-28 08:49] LABS: Calcium 9.3 mg/dL (8.6-10.3); Magnesium 2.2 mg/dL (1.6-2.6)
[2020-10-28] MEDS ORDERED: Levothyroxine 25 MCG TABLET PO SCH (09:00)
[2020-10-28] MEDS ORDERED: Isosorbide MONOnitrate (24 HR) 60 MG TAB.ER.24H PO SCH (09:00)
[2020-10-28] MEDS ORDERED: Cholecalciferol (D-3) 1,000 UNIT (25MCG) TABLET PO SCH (09:00)
[2020-10-28] MEDS ORDERED: Aspirin 81 MG TAB.CHEW PO SCH (09:00)
[2020-10-28] MEDS ORDERED: Cyanocobalamin (B-12) 1,000 MCG TABLET PO SCH (09:00)
[2020-10-28] MEDS ORDERED: rOPINIRole 1 MG TABLET PO SCH (09:00)
[2020-10-28 10:52] VITALS: BP 100/58
[2020-10-28] MEDS ORDERED: Famotidine 20 MG TABLET PO SCH (21:00)
== END 2020-10-28 15:38 | disposition home or self-care (01) ==
LOC: 3BNU 13:20 → EMEROOARM 13:20 → 3BNU 18:50
PROVIDERS: ADMIT Internal Medicine; ATTEND Internal Medicine

== ENCOUNTER 2020-10-29 20:21 | Observation (INO) ==
[2020-10-29] MEDS ORDERED: Ondansetron ODT 4 MG TAB.RAPDIS SL ONE (20:44)
[2020-10-29] MEDS ORDERED: Morphine Sulfate 2 MG/ML SYRINGE IVP ONE (20:44)
[2020-10-29] MEDS ORDERED: 0.9 % Sodium Chloride 1,000 ML IVC ONE ×2 (20:44→23:23)
[2020-10-29] MEDS ORDERED: Isovue-370 500 ML BOTTLE IVP ONE (20:46)
[2020-10-29 21:01] LABS: Basophils % 0.1 %; Eosinophils # 0.1 K/mcL (0.0-0.6); Hematocrit 38.8 % (35.3-44.9); Hemoglobin 13.2 g/dL (11.5-15.4); Immature Granulocytes % 0.3 % (0-4); Lymphocytes # 0.6 K/mcL (0.6-4.6); Lymphocytes % 7.8 %; Mean Corpuscular Hemoglobin 30.7 pg (28.0-33.3); Mean Corpuscular Volume 90.2 fL (83.0-100.0); Mean Platelet Volume 10.6 fL (9.4-12.4); Monocytes # 0.2 K/mcL (0.0-1.3); Monocytes % 2.6 %; Neutrophils # 6.8 K/mcL (1.6-8.9); Platelet Count 160 K/mcL (140-400); Red Cell Distribution Width 13.7 % (11.5-14.5); Segmented Neutrophils % 88.2 %; White Blood Count 7.7 K/mcL (4.3-11.1)
[2020-10-29] MEDS ORDERED: Ondansetron 4 MG/2 ML VIAL ONE (21:05)
[2020-10-29] MEDS ORDERED: Ondansetron 4 MG/2 ML VIAL IVP ONE (21:09)
[2020-10-29 21:10] LABS: INR 1.1; Prothrombin Time 12.5 Seconds (9.4-12.1)
[2020-10-29 21:13] LABS: Bilirubin,Urine Negative (Negative); Blood,Urine Negative (Negative); Clarity,Urine Clear (Clear); Color,Urine Light-Yellow (Yellow); Glucose,Urine (UA) Normal (Normal); Ketones,Urine Negative (Negative); Leukocyte Esterase,Urine Negative (Negative); Nitrite,Urine Negative (Negative); PH,Urine 5.5 pH Units (5.0-8.0); Protein,Urine Trace mg/dL (Neg-Trace); Specific Gravity,Urine 1.025 (1.010-1.025); Urobilinogen,Urine Normal (Normal)
[2020-10-29 21:25] LABS: Alanine Aminotransferase 30 Units/L (7-52); Albumin 4.2 g/dL (3.5-5.7); Albumin/Globulin Ratio 1.5 (1.1-2.2); Alkaline Phosphatase 47 Units/L (34-104); Aspartate Amino Transferase 27 Units/L (13-39); BUN/Creatinine Ratio 22 (6-26); Bilirubin,Direct 0.1 mg/dL (0.0-0.2); Bilirubin,Indirect 0.6 mg/dL (0.0-1.0); Bilirubin,Total 0.7 mg/dL (0.3-1.0); Blood Urea Nitrogen 18 mg/dL (8-23); Calcium 8.7 mg/dL (8.6-10.3); Carbon Dioxide 21 mEq/L (23-29); Chloride 103 mEq/L (98-107); Globulin 2.8 g/dL (2.4-3.5); Glucose 126 mg/dL (70-105); Lipase 37 Units/L (11-82); Osmolality,Calculated 285 (280-300); Potassium 3.7 mEq/L (3.5-5.1); Sodium 136 mEq/L (136-145); Troponin I < 0.03 ng/mL (< 0.04); eGFR For African Americans > 60 (> 60); eGFR For Non-African Americans > 60 (> 60)
[2020-10-29] MEDS ORDERED: Tetracaine/Benzocaine/Butamben 1 SPRAY AEROSOL MM ONE (23:23)
[2020-10-29] MEDS ORDERED: *HR* Promethazine 25 MG/ML VIAL IM PRN (23:25)
[2020-10-29] MEDS ORDERED: Naloxone 0.4 MG/ML INJ IVP PRN (23:25)
[2020-10-29] MEDS ORDERED: *HR* Metoprolol 5 MG/5 ML VIAL IVP PRN (23:27)
[2020-10-30] MEDS ORDERED: Chloraseptic Spray 177 ML BOTTLE MM PRN (00:04)
[2020-10-30] MEDS: Morphine Sulfate 2 MG/ML SYRINGE IVP PRN ×5 (00:55→19:22)
[2020-10-30] MEDS: Ondansetron 4 MG/2 ML VIAL IVP PRN ×3 (00:56→22:53)
[2020-10-30] MEDS: Pantoprazole 40 MG in 0.9 % Sodium Chloride Mini Bag 100 ML IVC SCH ×2 (00:57→05:30)
[2020-10-30] MEDS: 0.9 % Sodium Chloride 1,000 ML IVC SCH ×2 (00:58→18:15)
[2020-10-30 01:35] LABS: Basophils % 0.1 %; Immature Granulocytes % 0.3 % (0-4); Mean Corpuscular Hemoglobin 30.7 pg (28.0-33.3); Monocytes % 3.8 %
[2020-10-30 01:36] LABS: Eosinophils # 0.1 K/mcL (0.0-0.6); Eosinophils % 0.7 %; Hematocrit 37.9 % (35.3-44.9); Hemoglobin 12.6 g/dL (11.5-15.4); Immature Platelets 2.7 % (1.1-6.1); Lymphocytes % 13.3 %; Mean Corpuscular HGB Conc 33.2 g/dL (31.6-35.5); Mean Corpuscular Volume 92.2 fL (83.0-100.0); Mean Platelet Volume 10.4 fL (9.4-12.4); Monocytes # 0.3 K/mcL (0.0-1.3); Platelet Count 143 K/mcL (140-400); Red Blood Count 4.11 M/mcL (3.82-4.97); Red Cell Distribution Width 13.7 % (11.5-14.5); Segmented Neutrophils % 81.8 %; White Blood Count 7.3 K/mcL (4.3-11.1)
[2020-10-30 01:54] LABS: BUN/Creatinine Ratio 20 (6-26); Blood Urea Nitrogen 17 mg/dL (8-23); Calcium 8.5 mg/dL (8.6-10.3); Carbon Dioxide 21 mEq/L (23-29); Chloride 105 mEq/L (98-107); Glucose 106 mg/dL (70-105); Osmolality,Calculated 282 (280-300); Potassium 3.1 mEq/L (3.5-5.1); Sodium 135 mEq/L (136-145); eGFR For African Americans > 60 (> 60); eGFR For Non-African Americans > 60 (> 60)
[2020-10-30] MEDS ORDERED: Potassium Chloride 40 MEQ, Lidocaine 1% 2 ML in 0.9 % Sodium Chloride 500 ML IVPB ONE (04:00)
[2020-10-30] MEDS: Levothyroxine Sodium 100 MCG VIAL IVP SCH (08:15)
[2020-10-30] MEDS: Calcium Gluconate 1gm/50mL 1 GM/50 ML BAG IVPB SCH ×2 (09:44→10:49)
[2020-10-30 12:27] LABS: Hematocrit 38.7 % (35.3-44.9)
[2020-10-30] MEDS: Pantoprazole 40 MG VIAL IVP SCH (18:16)
[2020-10-30] MEDS ORDERED: Morphine Sulfate 2 MG/ML SYRINGE IVP ONE (23:37)
[2020-10-31] MEDS: Morphine Sulfate 2 MG/ML SYRINGE IVP PRN ×2 (00:05→04:10)
[2020-10-31] MEDS: Pantoprazole 40 MG VIAL IVP SCH (05:13)
[2020-10-31] MEDS: Pantoprazole 40 MG in 0.9 % Sodium Chloride Mini Bag 100 ML IVC SCH (07:27)
[2020-10-31] MEDS: Levothyroxine Sodium 100 MCG VIAL IVP SCH (08:03)
[2020-10-31] MEDS: Cholecalciferol (D-3) 1,000 UNIT (25MCG) TABLET PO SCH (08:12)
[2020-10-31] MEDS: Levothyroxine 25 MCG TABLET PO SCH (08:12)
[2020-10-31] MEDS: Cyanocobalamin (B-12) 1,000 MCG TABLET PO SCH (08:12)
[2020-10-31] MEDS: rOPINIRole 1 MG TABLET PO SCH ×2 (08:28→20:34)
[2020-10-31 08:46] LABS: Hematocrit 36.8 % (35.3-44.9); Hemoglobin 12.2 g/dL (11.5-15.4); Immature Platelets 2.6 % (1.1-6.1); Mean Corpuscular HGB Conc 33.2 g/dL (31.6-35.5); Mean Corpuscular Volume 93.6 fL (83.0-100.0); Red Blood Count 3.93 M/mcL (3.82-4.97); Red Cell Distribution Width 13.7 % (11.5-14.5); White Blood Count 5.1 K/mcL (4.3-11.1)
[2020-10-31 09:00] LABS: BUN/Creatinine Ratio 11 (6-26); Blood Urea Nitrogen 9 mg/dL (8-23); Calcium 8.6 mg/dL (8.6-10.3); Carbon Dioxide 24 mEq/L (23-29); Chloride 109 mEq/L (98-107); Glucose 89 mg/dL (70-105); Magnesium 1.9 mg/dL (1.6-2.6); Osmolality,Calculated 288 (280-300); Phosphorous 1.8 mg/dL (2.7-4.5); Potassium 3.6 mEq/L (3.5-5.1); Sodium 140 mEq/L (136-145); eGFR For African Americans > 60 (> 60); eGFR For Non-African Americans > 60 (> 60)
[2020-10-31] MEDS ORDERED: NON-FORMULARY MEDICATION 1 EACH EACH (Ropinirole Hcl [Requip] 4 MG Tablet) PO SCH (09:00)
[2020-10-31] MEDS ORDERED: Potassium Phosphate 44 MEQ in 0.9 % Sodium Chloride 250 ML IVPB ONE (09:39)
[2020-10-31] MEDS: 0.9 % Sodium Chloride 1,000 ML IVC SCH (10:31)
[2020-10-31] MEDS ORDERED: Simethicone 40 MG/0.6 ML MLS IR ONE (12:58)
[2020-10-31] MEDS ORDERED: Lidocaine -MPF 2% 2 ML VIAL ONE (13:13)
[2020-10-31] MEDS ORDERED: *HR* Propofol 200 MG/20 ML VIAL IVP ONE (13:13)
[2020-10-31] MEDS: Sennosides/Docusate Sodium TABLET PO SCH (20:32)
[2020-10-31] MEDS: polyethylene glycoL 3350 17 GM POWD.PACK PO SCH (20:34)
[2020-11-01 05:22] LABS: Hematocrit 37.9 % (35.3-44.9); Hemoglobin 12.5 g/dL (11.5-15.4); Immature Platelets 2.8 % (1.1-6.1); Mean Corpuscular Hemoglobin 31.1 pg (28.0-33.3); Mean Corpuscular Volume 94.3 fL (83.0-100.0); Mean Platelet Volume 10.3 fL (9.4-12.4); Red Blood Count 4.02 M/mcL (3.82-4.97); White Blood Count 4.7 K/mcL (4.3-11.1)
[2020-11-01 05:41] LABS: Iron 46 mcg/dL (50-170)
[2020-11-01 05:58] LABS: Ferritin 87 ng/mL (10-120)
[2020-11-01 05:59] LABS: BUN/Creatinine Ratio 14 (6-26); Blood Urea Nitrogen 10 mg/dL (8-23); Calcium 8.5 mg/dL (8.6-10.3); Carbon Dioxide 23 mEq/L (23-29); Chloride 108 mEq/L (98-107); Glucose 94 mg/dL (70-105); Magnesium 1.9 mg/dL (1.6-2.6); Osmolality,Calculated 289 (280-300); Phosphorous 2.7 mg/dL (2.7-4.5); Potassium 3.3 mEq/L (3.5-5.1); Sodium 140 mEq/L (136-145); eGFR For African Americans > 60 (> 60); eGFR For Non-African Americans > 60 (> 60)
[2020-11-01 06:01] LABS: % Iron Saturation 14 % (15-50); Transferrin 233 mg/dL (203-362)
[2020-11-01 06:03] LABS: Folate 10.3 ng/mL (3.0-16.0)
[2020-11-01] MEDS: 0.9 % Sodium Chloride 1,000 ML IVC SCH (06:08)
[2020-11-01] MEDS ORDERED: Iron Sucrose Complex 400 MG in 0.9 % Sodium Chloride 250 ML IVPB ONE (07:37)
[2020-11-01] MEDS: Cyanocobalamin (B-12) 1,000 MCG TABLET PO SCH (07:59)
[2020-11-01] MEDS: Sennosides/Docusate Sodium TABLET PO SCH (07:59)
[2020-11-01] MEDS: Levothyroxine 25 MCG TABLET PO SCH (07:59)
[2020-11-01] MEDS: Cholecalciferol (D-3) 1,000 UNIT (25MCG) TABLET PO SCH (07:59)
[2020-11-01] MEDS: rOPINIRole 1 MG TABLET PO SCH (07:59)
[2020-11-01] MEDS: polyethylene glycoL 3350 17 GM POWD.PACK PO SCH (08:00)
[2020-11-01] MEDS: Calcium Gluconate 1gm/50mL 1 GM/50 ML BAG IVPB SCH ×2 (08:56→10:37)
[2020-11-01 11:08] VITALS: BP 114/73
== END 2020-11-01 16:17 | disposition home or self-care (01) ==
LOC: EMEROOARM 20:21 → 3ANU 20:21 → SUATTDRO 23:05 → 3ANU 10-30 00:16
PROVIDERS: ADMIT Internal Medicine; ATTEND Internal Medicine
PROC: ENDOEBX (2020-10-31 13:00)

== ENCOUNTER 2021-02-20 06:21 | Observation (INO) ==
[2021-02-20] MEDS ORDERED: Aspirin 325 MG TABLET PO ONE (06:34)
[2021-02-20] MEDS ORDERED: Ondansetron ODT 4 MG TAB.RAPDIS SL ONE (06:35)
[2021-02-20] MEDS ORDERED: Nitroglycerin 0.4 MG TAB.SUBL SL SCH (06:45)
[2021-02-20 06:59] LABS: Basophils # 0.1 K/mcL (0.0-0.2); Eosinophils # 0.1 K/mcL (0.0-0.6); Eosinophils % 1.8 %; Hematocrit 39.9 % (35.3-44.9); Hemoglobin 13.9 g/dL (11.5-15.4); Immature Granulocytes % 0.1 % (0-4); Lymphocytes # 3.4 K/mcL (0.6-4.6); Lymphocytes % 48.2 %; Mean Corpuscular HGB Conc 34.8 g/dL (31.6-35.5); Mean Corpuscular Hemoglobin 30.5 pg (28.0-33.3); Mean Corpuscular Volume 87.7 fL (83.0-100.0); Mean Platelet Volume 10.8 fL (9.4-12.4); Monocytes # 0.8 K/mcL (0.0-1.3); Monocytes % 10.9 %; Neutrophils # 2.7 K/mcL (1.6-8.9); Platelet Count 172 K/mcL (140-400); Red Blood Count 4.55 M/mcL (3.82-4.97); Red Cell Distribution Width 13.3 % (11.5-14.5); White Blood Count 7.1 K/mcL (4.3-11.1)
[2021-02-20 07:15] LABS: Alanine Aminotransferase 60 Units/L (7-52); Albumin 4.7 g/dL (3.5-5.7); Albumin/Globulin Ratio 1.5 (1.1-2.2); Alkaline Phosphatase 59 Units/L (34-104); Aspartate Amino Transferase 50 Units/L (13-39); BUN/Creatinine Ratio 24 (6-26); Bilirubin,Total 0.9 mg/dL (0.3-1.0); Blood Urea Nitrogen 32 mg/dL (8-23); Calcium 9.8 mg/dL (8.6-10.3); Carbon Dioxide 29 mEq/L (23-29); Chloride 95 mEq/L (98-107); Globulin 3.1 g/dL (2.4-3.5); Glucose 121 mg/dL (70-105); Lipase 45 Units/L (11-82); Osmolality,Calculated 294 (280-300); Potassium 2.6 mEq/L (3.5-5.1); Sodium 138 mEq/L (136-145); Total Protein 7.8 g/dL (6.4-8.9); Troponin I < 0.03 ng/mL (< 0.04); eGFR For African Americans 47 (> 60); eGFR For Non-African Americans 39 (> 60)
[2021-02-20] MEDS ORDERED: Potassium Effervescent 25 MEQ TABLET.EFF PO ONE (07:42)
[2021-02-20] MEDS ORDERED: Ondansetron 4 MG/2 ML VIAL IVP PRN (09:02)
[2021-02-20] MEDS ORDERED: Acetaminophen 325 MG TABLET PO PRN (09:02)
[2021-02-20] MEDS ORDERED: Naloxone 0.4 MG/ML INJ IVP PRN (09:02)
[2021-02-20] MEDS ORDERED: Potassium Chloride 40 MEQ, Lidocaine 1% 2 ML in 0.9 % Sodium Chloride 500 ML IVPB ONE (09:04)
[2021-02-20] MEDS ORDERED: Perflutren Lipid Microsphere 1.3 ML in 0.9 % Sodium Chloride 8.7 ML IVP PRN (09:05)
[2021-02-20] MEDS ORDERED: Potassium Chloride 20 MEQ, Lidocaine 1% 2 ML in 0.9 % Sodium Chloride 250 ML IVPB ONE (09:05)
[2021-02-20] MEDS ORDERED: *HR* LORazepam 2 MG/ML VIAL IVP ONE (09:06)
[2021-02-20] MEDS ORDERED: 0.9 % Sodium Chloride 1,000 ML IVC SCH (09:15)
[2021-02-20] MEDS ORDERED: polyethylene glycoL 3350 17 GM POWD.PACK PO PRN (09:30)
[2021-02-20] MEDS: *HR* Heparin 5,000 UNIT/ML VIAL SQ SCH (17:15)
[2021-02-20] MEDS: Famotidine 20 MG TABLET PO SCH (20:49)
[2021-02-20] MEDS: rOPINIRole 1 MG TABLET PO SCH (21:21)
[2021-02-21] MEDS: *HR* Heparin 5,000 UNIT/ML VIAL SQ SCH ×2 (05:07→16:14)
[2021-02-21 05:14] LABS: Basophils % 0.7 %; Eosinophils # 0.2 K/mcL (0.0-0.6); Eosinophils % 2.7 %; Hematocrit 38.2 % (35.3-44.9); Hemoglobin 12.9 g/dL (11.5-15.4); Immature Granulocytes % 0.2 % (0-4); Lymphocytes # 3.3 K/mcL (0.6-4.6); Lymphocytes % 59.1 %; Mean Corpuscular HGB Conc 33.8 g/dL (31.6-35.5); Mean Corpuscular Hemoglobin 30.5 pg (28.0-33.3); Mean Corpuscular Volume 90.3 fL (83.0-100.0); Mean Platelet Volume 11.1 fL (9.4-12.4); Monocytes # 0.5 K/mcL (0.0-1.3); Monocytes % 8.7 %; Neutrophils # 1.6 K/mcL (1.6-8.9); Platelet Count 142 K/mcL (140-400); Red Blood Count 4.23 M/mcL (3.82-4.97); Red Cell Distribution Width 13.4 % (11.5-14.5); Segmented Neutrophils % 28.6 %; White Blood Count 5.7 K/mcL (4.3-11.1)
[2021-02-21 05:33] LABS: Calcium 8.8 mg/dL (8.6-10.3); Chol/HDL Ratio 5.9 (0-4.9); Magnesium 2.2 mg/dL (1.6-2.6); Phosphorous 3.5 mg/dL (2.7-4.5); Potassium 2.9 mEq/L (3.5-5.1)
[2021-02-21 05:36] LABS: Albumin/Globulin Ratio 1.5 (1.1-2.2); Bilirubin,Direct 0.1 mg/dL (0.0-0.2); Bilirubin,Indirect 0.7 mg/dL (0.0-1.0); Bilirubin,Total 0.8 mg/dL (0.3-1.0); Estimated Average Glucose 143 mg/dl; Globulin 2.6 g/dL (2.4-3.5); Hemoglobin A1C 6.6 %; Total Protein 6.6 g/dL (6.4-8.9)
[2021-02-21] MEDS ORDERED: Potassium Chloride 40 MEQ, Lidocaine 1% 2 ML in 0.9 % Sodium Chloride 500 ML IVPB ONE (08:33)
[2021-02-21] MEDS: Cholecalciferol (D-3) 1,000 UNIT (25MCG) TABLET PO SCH (08:47)
[2021-02-21] MEDS: Aspirin 81 MG TAB.CHEW PO SCH (08:47)
[2021-02-21] MEDS: rOPINIRole 1 MG TABLET PO SCH ×2 (08:47→20:07)
[2021-02-21] MEDS: Isosorbide MONOnitrate (24 HR) 60 MG TAB.ER.24H PO SCH (08:51)
[2021-02-21] MEDS: Cyanocobalamin (B-12) 1,000 MCG TABLET PO SCH (09:29)
[2021-02-21] MEDS: Levothyroxine 25 MCG TABLET PO SCH (11:39)
[2021-02-21 14:20] VITALS: O2SAT 100
[2021-02-21] MEDS: 0.9 % Sodium Chloride 1,000 ML IVC SCH (16:15)
[2021-02-21] MEDS: Famotidine 20 MG TABLET PO SCH (20:08)
[2021-02-22 01:12] LABS: Bacteria,Urine Few per hpf (None-Few); Bilirubin,Urine Negative (Negative); Blood,Urine Moderate (Negative); Clarity,Urine Clear (Clear); Color,Urine Colorless (Yellow); Glucose,Urine (UA) Normal (Normal); Ketones,Urine Negative (Negative); Leukocyte Esterase,Urine Negative (Negative); Mucus,Urine Few per lpf (None-Few); Nitrite,Urine Negative (Negative); Protein,Urine Negative (Neg-Trace); RBC,Urine 0-3 per hpf (0-3); Squamous Epithelial Cell,Urine Few per hpf (None-Few); Urobilinogen,Urine Normal (Normal); WBC,Urine 0-3 per hpf (0-3)
[2021-02-22] MEDS: 0.9 % Sodium Chloride 1,000 ML IVC SCH (02:22)
[2021-02-22 03:12] VITALS: PULSE 61
[2021-02-22] MEDS: *HR* Heparin 5,000 UNIT/ML VIAL SQ SCH (04:43)
[2021-02-22 05:40] LABS: Hemoglobin 12.5 g/dL (11.5-15.4); Immature Platelets 4.5 % (1.1-6.1); Mean Corpuscular HGB Conc 33.8 g/dL (31.6-35.5); Mean Corpuscular Hemoglobin 31.2 pg (28.0-33.3); Mean Corpuscular Volume 92.3 fL (83.0-100.0); Mean Platelet Volume 11.1 fL (9.4-12.4); Red Blood Count 4.01 M/mcL (3.82-4.97); Red Cell Distribution Width 13.6 % (11.5-14.5)
[2021-02-22 06:01] LABS: Alanine Aminotransferase 37 Units/L (7-52); Albumin/Globulin Ratio 1.6 (1.1-2.2); Alkaline Phosphatase 46 Units/L (34-104); Aspartate Amino Transferase 29 Units/L (13-39); BUN/Creatinine Ratio 19 (6-26); Bilirubin,Total 0.5 mg/dL (0.3-1.0); Blood Urea Nitrogen 20 mg/dL (8-23); Carbon Dioxide 23 mEq/L (23-29); Chloride 109 mEq/L (98-107); Globulin 2.5 g/dL (2.4-3.5); Glucose 99 mg/dL (70-105); Osmolality,Calculated 293 (280-300); Potassium 3.3 mEq/L (3.5-5.1); Sodium 140 mEq/L (136-145); Total Protein 6.5 g/dL (6.4-8.9); eGFR For African Americans > 60 (> 60); eGFR For Non-African Americans 53 (> 60)
[2021-02-22] MEDS: Isosorbide MONOnitrate (24 HR) 60 MG TAB.ER.24H PO SCH (08:10)
[2021-02-22] MEDS: Cyanocobalamin (B-12) 1,000 MCG TABLET PO SCH (08:10)
[2021-02-22] MEDS: Levothyroxine 25 MCG TABLET PO SCH (08:10)
[2021-02-22] MEDS: Aspirin 81 MG TAB.CHEW PO SCH (08:10)
[2021-02-22] MEDS: Cholecalciferol (D-3) 1,000 UNIT (25MCG) TABLET PO SCH (08:10)
[2021-02-22 08:17] VITALS: BP 115/71; TEMP 97.4
[2021-02-22] MEDS: rOPINIRole 1 MG TABLET PO SCH (11:03)
== END 2021-02-22 14:21 | disposition home health service (06) ==
LOC: EMEROOARM 06:21 → CDU 06:21 → SUATTDRO 08:27 → CDU 10:06
PROVIDERS: ADMIT Internal Medicine; ATTEND Family Medicine